=== PATIENT | female | born 1970 | race Caucasian/White ===

== ENCOUNTER → 2020-12-26 | Outpatient (CLI) | payer OTHER ==
--- NOTE | 2020-12-26 16:39 | RADONC.CN ---
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 She presented in 2019 with post-coital bleeding and was noted on evaluation to have a mass at the vaginal cuff apex. This was sampled and returned endometrioid adenocarcinoma c/w recurrence. She is seen today following comprehensive evaluation at [facility] where the recommendation is for concurrent chemoradiation followed by interstitial brachytherapy. Dr. Claire has referred her for EBRT and cisplatin chemotherapy here closer to home. 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 Giles exam with friable mass at cuff apex ~ 4cm Biopsy showing endometrioid adenocarcinoma Field Instructor history: Menses @ 15 Menopause @ 36 (surgical) No OCP or HRT Interval History Feels well, has some nocturia, no dysuria, spotting, or discharge. Her appetite is good, her weight is stable. She has no additional complaints. Past Medical History: Unremarkable Past Surgical History: Lap band Family History: Paternal aunt breast cancer Social History: Never smoker Does not consume alcohol Review of Systems Constitutional: Denies: Chills, Fever, Night Sweats Eyes: Denies: Pain, Vision change HEENT: Denies: Head Aches, Dysphagia, Sore Throat Skin: Denies: Rash, Lesions, Bruising Pulmonary: Denies: Dyspnea, Cough Cardiovascular: Denies: Chest Pain, Palpitations, Edema Gastrointestinal: Denies: Nausea, Vomiting, Abdominal Pain, Diarrhea Genitourinary: Denies: Dysuria, Frequency, Incontinence Hematologic: Denies: Bruising, Petecchia, Enlarged Lymph Nodes Musculoskeletal: Denies: Neck pain, Back pain Neurological: Denies: Weakness, Numbness, Incoordination Psych: Reports: Mood Normal; Denies: Memory Issues, Thoughts of Self Harm Vital Signs Ht 67" Wt 302 lbs T 98 P 78 RR 18 BP 125/67 O2 99% Pain 0 Fatigue 0 Eye Exam: Positive: PERRLA, EOMI ENT EXAM: Positive: Mucous membr. moist/pink, Pharynx Normal Neck Exam: Negative: Supple, JVD, Thyromegaly, +2 carotid pulse wo bruit, Lymphadenopathy, Other Chest Exam: Positive: Normal air movement; Negative: Rales, Rhonchi, Wheezing Heart Exam: Positive: Rate Normal, Regular Rhythm Abdomen Exam: Positive: Soft; Negative: Tenderness, Mass Female Exam: Positive: Nl Ext Genitalia, Lesions (At the vaginal cuff apex there is an exophytic mass ~ 4cm, there is no bleeding noted, there is no tenderness, bimanual exam suggests parametrial extension. There is no palpable abdominal or inguinal adenopathy); Negative: Normal Cervical Exam, Discharge, Odor, Tenderness, Nl Rectal Sphincter Tone Extremity Exam: Positive: Edema (Pedal edema BL); Negative: Tenderness Skin Exam: Positive: Nl turgor and temperature; Negative: Rash Neuro Exam: Positive: Normal Gait, Normal Speech, Cranial Nerves 3-12 NL Psych Exam: Positive: Mental status NL, Mood NL, Memory Intact Diagnostic and Laboratory Diagnostic Review Radiologic images, relevant labs and pathology reports were personally reviewed and discussed with Ms. Pulliam. Assessment and Plan Impression Ms. 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 She presented in 2019 with post-coital bleeding and was noted on evaluation to have a mass at the vaginal cuff apex. This was sampled and returned endometrioid adenocarcinoma c/w recurrence. She is seen today following comprehensive evaluation at [facility] where the recommendation is for concurrent chemoradiation followed by interstitial brachytherapy. Dr. Claire has referred her for EBRT and cisplatin chemotherapy here closer to home. Stage Endometrioid adenocarcinoma [id number] stage IIIB (parametrial/vaginal recurrence) Performance Status ECOG 0 Plan We had an extensive discussion with Ms. Pulliam regarding the diagnosis at hand and available therapeutic options. She is asymptomatic and doing well. Her exam shows a bulky vaginal cuff recurrent lesion and palpable parametrial involvement. I agree fully with Dr. Claire plan for chemoradiation followed by brachytherapy boost. I will give her 45 Gy in 25 fractions to the primary and nodes with concurrent cisplatin to be arranged here. I will use VMAT as she is s/p hysterectomy to spare bowel dose I have her scheduled for PET-CT on 12/30/20 which will complete her staging and aid in planning. We discussed the logistics of receiving radiation therapy in detail including the need for a 1-time planning session. This can occur next week as well. We reviewed the side effects of treatment namely diarrhea, which is expected, fatigue, and more rarely symptoms. I will also obtain pelvic MRI at the end of EBRT to aid Dr. Claire in planning for interstitial brachytherapy. After discussing the risks, benefits and alternatives to radiation therapy, Ms. Pulliam was amenable to pursuing radiotherapy. All questions were answered to the patient's satisfaction. We instructed the patient that if there were any questions,concerns or changes in clinical status in the interim to contact us. Recommendations Chemoradiation 45 Gy in 25 fractions with VMAT Simulation week of 12/30/20 Brachy boost to follow per Dr. Claire PET-CT 12/30/20 Medical oncology consultation next week Will order MRI pelvis times for completion of EBRT Billing Statement Total time of [54] minutes was spent preparing for the visit [4], obtaining HPI [5], examining the patient [5], reviewing diagnostic tests [5], discussing management options [15], coordinating care [8], and writing this note [12]. JIMI FAITH MD Dec 26, 2020 16:39
[2020-12-26 16:42] LABS: APPEARANCE, URINE CLEAR (CLEAR); BACTERIA, URINE AUTO NEGATIVE (NEGATIVE); BILIRUBIN, URINE AUTO NEGATIVE (NEGATIVE); BLOOD, URINE BLOOD NEGATIVE (NEGATIVE); COLOR, URINE YELLOW (YELLOW); GLUCOSE, URINE (UA) AUTO NEGATIVE (NEGATIVE); KETONE, URINE AUTO NEGATIVE (NEGATIVE); LEUKOCYTE ESTERASE, URINE AUTO TRACE (NEGATIVE); MUCUS, URINE SMALL (NEGATIVE); NITRITE, URINE AUTO NEGATIVE (NEGATIVE); PROTEIN, URINE AUTO NEGATIVE (NEGATIVE); RBC, URINE AUTO 3 /HPF (0-3); SQUAMOUS EPITHELIAL CELL UR AU 0 /HPF (0-6); UROBILINOGEN, URINE AUTO 0.2 mg/dL (0.0-2.0); WBC, URINE AUTO 3 /HPF (0-3)
== END ==
LOC: M ONCR 14:10
PROVIDERS: ATTEND General Practice
DX: C54.1 Malignant neoplasm of endometrium (principal)
CPT/HCPCS: 81001; 87086; G0463

== ENCOUNTER → 2020-12-30 | Outpatient (CLI) | payer OTHER ==
[~2020-12-30] MED LIST: ONDA8TAB10 PO; PROC10TA4 PO
--- NOTE | 2020-12-31 12:49 | REP ---
INDICATION: RESTAGING ENDOMETRIAL CANCER. History of right ovarian and endometrial carcinoma diagnosed originally in 2006 status post hysterectomy and oophorectomy. Vaginal cuff recurrence in 2019 endometrioid adenocarcinoma. COMPARISON: None. TECHNIQUE: Approximately 45 minutes following the intravenous injection of a 15 mCi dose of F-18 FDG, three-dimensional PET scintigraphy is acquired from the skull base to the proximal thighs. Triplanar noncontrast CT scanning is acquired through the same anatomic range for attenuation correction, and image registration with scan parameters optimized to minimize radiation exposure to the patient. PET scintigraphy and CT datasets were fused and displayed on a workstation with multiplanar and projection display capability. FINDINGS: No abnormal hypermetabolic uptake is seen in the head and neck soft tissues. There is some vascular uptake in the right neck which is felt to be normal variant. Thoracic and abdominal portion of the PET-CT study are negatively affected by patient body habitus. There is considerable beam hardening artifact on the CT images. A lap band device is noted in place. No abnormal hypermetabolic uptake is seen in the liver or spleen. No abnormal retroperitoneal or upper abdominal hypermetabolic lymph node uptake is seen. There is no hypermetabolic iliac or inguinal emmie uptake in the pelvis. The patient's vaginal mass is so close to the physiologic activity in the urinary bladder as to be impossible to assess for SUV accurately. It does appear to have some avidity. No other abnormal hypermetabolic uptake is seen in the abdomen or pelvis. In the chest, there is no abnormal hypermetabolic pulmonary parenchymal disease. No abnormal hilar or mediastinal emmie uptake is observed appreciated. No abnormal bony uptake is seen. IMPRESSION: The known vaginal cuff recurrence appears to show metabolic uptake but this cannot be quantitatively assessed due to its proximity to the urinary bladder physiologic uptake. There is no evidence of emmie hypermetabolic disease or distant metastatic disease scintigraphically. CT scan quality is inhibited by patient body habitus. <Electronically signed by Johnie Payne > 12/31/20 [id number]
== END ==
LOC: M PLARAD 09:21
PROVIDERS: ATTEND General Practice
DX: C54.1 Malignant neoplasm of endometrium (principal)
CPT/HCPCS: 78815; A9552

== ENCOUNTER → 2021-01-08 | Outpatient (CLI) | payer OTHER ==
[~2021-01-08] MED LIST changes: +AZO-95TA3 PO; +LIDOCAINE 1% MDV 20ML VIAL As Ordered ONE; +LORA1TAB4 PO; +MACR100C43 PO; +MIDAZOLAM INJ 2MG/2ML VIAL (J2250 PER 1MG) As Ordered ONE; +ceFAZolin 2 GM/D5W 50 ML IV BAG (J0690 PER 500MG) As Ordered ONE; +diphenhydrAMINE 50MG/ML VIAL (J1200) As Ordered ONE; +fentaNYL 100 MCG/2 ML INJECTION (J3010) As Ordered ONE
--- NOTE | 2021-01-08 13:23 | IRHP ---
[facility] IR Pre-Procedure H & P General Date of Service: Jan 08, 2021 Procedure: Same Day Surgery Interval History and Physical I have seen the patient and reviewed last H & P performed within 30 days. There is no significant interval change. History of Present Illness Chief Complaint The patient is a 50-year-old female admitted with a reason for visit of Endometrial Ca. PRE-PROCEDURE DIAGNOSIS: Endometrial cancer HEART: Normal rate. LUNGS: Normal breathing at rest. ASA Classification ASA Classification: II-Mild systemic disease, III-Severe systemic dis. Mallampati Score: II NPO: Yes Problems with prior sedation: No Obstructive Sleep Apnea: No Plan moderate sedation Allergies Coded Allergies: No Known Allergies (Unverified , 12/31/20) Home Medications Scheduled PRN Ondansetron HCl (Ondansetron HCl), 8 MG PO TID PRN for NAUSEA OR VOMITING Prochlorperazine Maleate (Prochlorperazine Maleate), 10 MG PO Q8H PRN for NAUSEA OR VOMITING VS, I&O, 24H, Fishbone Vital Signs/I&O Vital Signs Date Time Temp Pulse Resp B/P (MAP) Pulse Ox O2 Delivery O2 Flow Rate FiO2 01/08/21 13:10 55 16 100 Nasal Cannula 2 01/08/21 11:30 97.8 JUAN LE MD Jan 08, 2021 13:23
[2021-01-08 15:00] VITALS: BP 148/70
--- NOTE | 2021-01-09 12:21 | IRPON ---
IR Postoperative Note Date Of Procedure: Jan 08, 2021 Time Of Procedure: 16:00 IR Postoperative Note IR Ultrasound and fluoroscopy guided port placement. IR Ultrasound of the neck. IR Moderate sedation. Clinical indication: Endometrial cancer. Physician: Dr. Jones. Procedure: The patient was advised of the benefits, risks, and alternatives of the procedure and informed consent was obtained. A time-out was performed with verification of the patient's name, MRN, site of procedure and type of procedure to be performed. The patient was positioned in the supine position on the angiographic table. The site was prepped and draped in the usual sterile fashion. Moderate sedation was performed by the physician including the presence of an independent trained RN who assisted and monitored the patient's level of consciousness and physiologic status. Following the administration of fentanyl and Versed , the physician spent 45 minutes of continuous face to face time with the patient. Ultrasound of the neck reveals a patent and compressible right internal jugular vein. A rn icu radiograph reveals no gross abnormality. The neck and anterior chest wall were anesthetized with lidocaine. The right internal jugular vein was accessed using a microintroducer needle under ultrasound guidance, via a lateral approach. An 018 wire was advanced into the superior vena cava, the needle was removed and a microsheath was placed. An Amplatz wire was then passed into the inferior vena cava. An incision at the internal jugular vein access site and anterior chest wall were made using a scalpel. An incision was made at the anterior chest wall. A small pocket was created using a combination of blunt and sharp dissection. A tunneling device was then used to pass the catheter from the pocket to the neck puncture site. An 8- Afghan Angio Tri[employer]o Smart power port was then positioned in the pocket. The catheter was then measured and cut. The introducer sheath was exchanged for a peel-away sheath. The catheter was passed through the peel-away sheath into the internal jugular vein and the peel-away sheath was removed. The port tip was positioned at the cavoatrial junction. The port was then accessed with a Rogers needle. The port flushes and aspirates well. The puncture site in the neck was closed. The chest wall incision was then closed with 2-0 Vicryl and 4-0 Monocryl. Glue and Steri- Strips were applied. A sterile dressing was then applied. The patient tolerated the procedure well and was returned to the PRU in stable condition. Estimated blood loss: <5 ml. Complications: None. Conclusion: 1. Successful placement of an 8-Afghan Angio dynamics Smart power port via the right internal jugular vein. The port is ready for immediate use. 2. Patient to follow up in IR clinic in 2 weeks. Thank you for this referral. JUAN JONES MD Jan 09, 2021 12:21
== END ==
LOC: M IRPRO 11:18
PROVIDERS: ATTEND Specialist
DX: C54.1 Malignant neoplasm of endometrium (principal)
CPT/HCPCS: 36561; 99152; 99153; C1769; C1788; C1894; J0690; J1200; J1642; J1644; J2250; J3010

== ENCOUNTER → 2021-01-29 | Outpatient (RCR) | payer OTHER ==
[~2021-01-29] MED LIST changes: -LIDOCAINE 1% MDV 20ML VIAL As Ordered ONE; -MIDAZOLAM INJ 2MG/2ML VIAL (J2250 PER 1MG) As Ordered ONE; -ceFAZolin 2 GM/D5W 50 ML IV BAG (J0690 PER 500MG) As Ordered ONE; -diphenhydrAMINE 50MG/ML VIAL (J1200) As Ordered ONE; -fentaNYL 100 MCG/2 ML INJECTION (J3010) As Ordered ONE
== END ==
LOC: M ONCR 12-31 14:43
PROVIDERS: ATTEND General Practice
DX: C54.1 Malignant neoplasm of endometrium (principal)

== ENCOUNTER 2021-02-14 13:50 | Outpatient (RCR) | payer OTHER ==
[2021-02-10 15:16] LABS: APPEARANCE, URINE CLEAR (CLEAR); BACTERIA, URINE AUTO NEGATIVE (NEGATIVE); BILIRUBIN, URINE AUTO NEGATIVE (NEGATIVE); BLOOD, URINE BLOOD 1+ (NEGATIVE); COLOR, URINE STRAW (YELLOW); GLUCOSE, URINE (UA) AUTO NEGATIVE (NEGATIVE); KETONE, URINE AUTO NEGATIVE (NEGATIVE); LEUKOCYTE ESTERASE, URINE AUTO 1+ (NEGATIVE); MUCUS, URINE SMALL (NEGATIVE); NITRITE, URINE AUTO NEGATIVE (NEGATIVE); PROTEIN, URINE AUTO NEGATIVE (NEGATIVE); RBC, URINE AUTO 0 /HPF (0-3); SPECIFIC GRAVITY URINE AUTO 1.005 (1.002-1.035); SQUAMOUS EPITHELIAL CELL UR AU 0 /HPF (0-6); UROBILINOGEN, URINE AUTO 0.2 mg/dL (0.0-2.0); WBC, URINE AUTO 5 /HPF (0-3)
== END 2021-02-28 ==
LOC: M ONCR 13:50
PROVIDERS: ATTEND General Practice
DX: C54.1 Malignant neoplasm of endometrium (principal)

== ENCOUNTER → 2021-02-25 | Outpatient (CLI) | payer OTHER ==
[~2021-02-25] MED LIST changes: +PROHANCE 279.3MG/ML 15ML VIAL As Ordered ONE; +PROHANCE 279.3MG/ML 5ML VIAL As Ordered ONE
--- NOTE | 2021-02-25 17:01 | REP ---
INDICATION: ENDOMETRIAL CA, RESTAGING. Primary malignant neoplasm of the endometrium diagnosed in 2006. There is also history of serous ovarian malignancy. Patient is status post hysterectomy and bilateral salpingo oophorectomy and lymph node dissection. Is endometrial malignancy recurred at the vaginal vault apex. This is treated with a concomitant chemo radiation. COMPARISON: Comparison CT study 15 November 2020. Comparison PET-CT study December 30, 2020. TECHNIQUE: Axial and coronal T1 and T2 weighted scans include spin echo, turbo spin echo, inversion recovery sequences. Gadolinium enhancement dose is 20 mL of intravenous ProHance and post gadolinium enhanced MR imaging is acquired in all 3 planes.. FINDINGS: Cortical and medullary bone signal intensity are normal. No bony metastatic lesion is seen. There is no evidence of external or internal iliac lymphadenopathy. 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 Urinary bladder matson are smooth. There is no evidence of free fluid. There is an oval shaped enhancing mass just to the right of midline at the vaginal apex measuring 3.5 x 2.4 x 3.3 cm in craniocaudal by anteroposterior by right to left dimension respectively. Along the posterior aspect of this, there are small cystic areas. The largest cystic component at this level measures 3.2 x 2.1 cm. These are similar to the CT appearance from 15 November 2020. The dimensions of the soft tissue component on 15 November 2020 were 4.2 cm in greatest right to left dimension by 3.4 cm anteroposterior by 4.1 cm craniocaudal. The solid component appears to be smaller. No new soft tissue nodule is seen. No evidence of bowel wall edema is appreciated nor is there evidence of ascites. Study is otherwise unremarkable. IMPRESSION: The previously noted vaginal apex mass persists. The solid component of this lesion appears smaller than on CT study from 15 November 2020. There is no visible adenopathy. <Electronically signed by Johnie Payne > 02/25/21 [id number]
== END ==
LOC: M RAD 14:27
PROVIDERS: ATTEND General Practice
DX: C54.1 Malignant neoplasm of endometrium (principal)
CPT/HCPCS: 72197; A9576

== ENCOUNTER → 2021-05-12 | Outpatient (CLI) | payer OTHER ==
[~2021-05-12] MED LIST changes: +ONDA-84 PO; -ONDA8TAB10 PO; -PROC10TA4 PO; +PROC10TA5 PO; -PROHANCE 279.3MG/ML 15ML VIAL As Ordered ONE; -PROHANCE 279.3MG/ML 5ML VIAL As Ordered ONE
== END ==
LOC: M PLARAD 07:27
PROVIDERS: ATTEND General Practice
DX: C54.1 Malignant neoplasm of endometrium (principal)

== ENCOUNTER → 2021-05-14 | Outpatient (CLI) | payer OTHER ==
[~2021-05-14] MED LIST changes: -ONDA-84 PO; +ONDA8TAB10 PO; +PROC10TA4 PO; -PROC10TA5 PO
== END ==
LOC: M ONCR 11:27
PROVIDERS: ATTEND Radiology Radiation Oncology
DX: C54.1 Malignant neoplasm of endometrium (principal); Z92.3 Personal history of irradiation

== ENCOUNTER → 2021-11-13 | Outpatient (CLI) | payer OTHER ==
[~2021-11-13] MED LIST changes: +ONDA-84 PO; -ONDA8TAB10 PO; -PROC10TA4 PO; +PROC10TA5 PO
== END ==
LOC: M ONCR 12:56
PROVIDERS: ATTEND General Practice
DX: C54.1 Malignant neoplasm of endometrium (principal); Z92.3 Personal history of irradiation

== ENCOUNTER 2021-11-21 13:38 | Outpatient (CLI) | payer OTHER ==
[~2021-11-21] VITALS: Ht 162.6 cm; Wt 131.0 kg
[~2021-11-21 13:38] MED LIST changes: +ALTEPLASE 2MG/2ML VIAL XX PRN
[2021-11-21 14:00] VITALS: BP 166/78
[2021-11-21] MEDS ORDERED: ALTEPLASE 2MG/2ML VIAL XX SCH (14:00)
[2021-11-21] MEDS ORDERED: SODIUM CHLORIDE 0.9% INJ 10 ML SYR IV PRN (15:35)
[2021-11-21 17:00] VITALS: BP 167/83
[2021-11-22] MEDS ORDERED: SODIUM CHLORIDE 0.9% INJ 10 ML SYR IV SCH (09:00)
== END 2021-11-21 17:00 | disposition home or self-care (01) ==
LOC: M INFU 13:38
PROVIDERS: ATTEND Radiology Diagnostic Radiology
DX: C54.1 Malignant neoplasm of endometrium (principal)
CPT/HCPCS: 36593; 71045; J1642; J2997

== ENCOUNTER → 2021-11-26 | Outpatient (CLI) | payer OTHER ==
[~2021-11-26] MED LIST changes: -ALTEPLASE 2MG/2ML VIAL XX PRN; +LIDOCAINE 1% MDV 20ML VIAL As Ordered ONE; +MIDAZOLAM INJ 2MG/2ML VIAL (J2250 PER 1MG) As Ordered ONE; +NS 1,000 ML IV SCH; +ceFAZolin 2 GM/D5W 50 ML IV BAG (J0690 PER 500MG) As Ordered ONE; +ceFAZolin SOD 2 GM in IV 1 EA IV ONE; +diphenhydrAMINE 50MG/ML VIAL (J1200) As Ordered ONE; +fentaNYL 100 MCG/2 ML INJECTION As Ordered ONE
[2021-11-26 15:30] VITALS: BP 127/58
== END ==
LOC: M IRPRO 11:45
PROVIDERS: ATTEND Specialist
DX: Z45.2 Encounter for adjustment and management of vascular access device (principal); C54.1 Malignant neoplasm of endometrium
CPT/HCPCS: 36590; 99152; 99153; J0690; J1644; J2250; J3010

== ENCOUNTER → 2021-12-16 | Outpatient (POV) | payer OTHER ==
[~2021-12-16] VITALS: Ht 162.6 cm; Wt 134.0 kg
[~2021-12-16] MED LIST changes: -LIDOCAINE 1% MDV 20ML VIAL As Ordered ONE; -MIDAZOLAM INJ 2MG/2ML VIAL (J2250 PER 1MG) As Ordered ONE; -NS 1,000 ML IV SCH; -ceFAZolin 2 GM/D5W 50 ML IV BAG (J0690 PER 500MG) As Ordered ONE; -ceFAZolin SOD 2 GM in IV 1 EA IV ONE; -diphenhydrAMINE 50MG/ML VIAL (J1200) As Ordered ONE; -fentaNYL 100 MCG/2 ML INJECTION As Ordered ONE
[2021-12-16 14:40] VITALS: BP 148/70
== END ==
LOC: M IRPOV 14:31
PROVIDERS: ATTEND Radiology Diagnostic Radiology
DX: Z45.2 Encounter for adjustment and management of vascular access device (principal)

== ENCOUNTER → 2022-04-08 | Outpatient (CLI) | payer OTHER | LOC: M ONCR 12:42 | PROVIDERS: ATTEND General Practice | DX: C54.1 Malignant neoplasm of endometrium (principal); Z85.43 Personal history of malignant neoplasm of ovary; Z90.710 Acquired absence of both cervix and uterus; Z92.21 Personal history of antineoplastic chemotherapy; Z92.3 Personal history of irradiation ==

== ENCOUNTER → 2023-03-25 | Outpatient (CLI) | payer OTHER ==
[~2023-03-25] MED LIST changes: +LORA1TAB23 PO; -LORA1TAB4 PO
== END ==
LOC: M PLARAD 14:54
PROVIDERS: ATTEND General Practice
DX: C54.1 Malignant neoplasm of endometrium (principal)

== ENCOUNTER → 2023-04-08 | Outpatient (CLI) | payer OTHER | LOC: M ONCR 09:01 | PROVIDERS: ATTEND General Practice | DX: Z08 Encounter for follow-up examination after completed treatment for malignant neoplasm (principal); Z85.42 Personal history of malignant neoplasm of other parts of uterus; Z85.44 Personal history of malignant neoplasm of other female genital organs; R32 Unspecified urinary incontinence; R39.15 Urgency of urination; Z71.2 Person consulting for explanation of examination or test findings; Z92.21 Personal history of antineoplastic chemotherapy; Z92.3 Personal history of irradiation ==